=== PATIENT | male | born 1955 | race Caucasian/White ===

== ENCOUNTER 2019-07-10 15:25 | Outpatient (CLI) | payer BC, SELFPAY ==
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
== END 2019-07-10 15:26 | disposition home or self-care (01) ==
LOC: RADWPI 15:32
PROVIDERS: Family Provider Nurse Practitioner; PCP Family Medicine; Visit Provider Family Medicine
DX: M47.894 Other spondylosis, thoracic region (principal); M47.896 Other spondylosis, lumbar region; M54.6 Pain in thoracic spine; M54.2 Cervicalgia; M54.5 Low back pain
CPT/HCPCS: 72040; 72072; 72100

== ENCOUNTER → 2019-07-15 14:40 | Outpatient (BNVA) | payer BC, SELFPAY | PROVIDERS: Family Provider Nurse Practitioner; PCP Family Medicine; Visit Provider Psychiatry & Neurology Psychiatry | DX: F33.2 Major depressive disorder, recurrent severe without psychotic features (principal); F41.1 Generalized anxiety disorder | CPT/HCPCS: 99204 ==

== ENCOUNTER → 2019-07-27 12:32 | Outpatient (BNVA) | payer BC, SELFPAY | PROVIDERS: Family Provider Nurse Practitioner; PCP Family Medicine; Referring Provider Nurse Practitioner; Visit Provider Specialist | DX: I99.8 Other disorder of circulatory system (principal); Z86.73 Personal history of transient ischemic attack (TIA), and cerebral infarction without residual deficits | CPT/HCPCS: 99204 ==

== ENCOUNTER → 2019-08-26 09:05 | Outpatient (BNVA) | payer BC, SELFPAY | PROVIDERS: Family Provider Nurse Practitioner; PCP Nurse Practitioner; Visit Provider Nurse Practitioner | DX: E29.1 Testicular hypofunction (principal); F52.0 Hypoactive sexual desire disorder; R53.82 Chronic fatigue, unspecified | CPT/HCPCS: 80053; 84403; 85025 ==

== ENCOUNTER → 2019-08-27 15:54 | Outpatient (BNVA) | payer BC, SELFPAY | PROVIDERS: Family Provider Nurse Practitioner; PCP Nurse Practitioner; Visit Provider Psychiatry & Neurology Psychiatry | DX: F41.1 Generalized anxiety disorder (principal); F33.2 Major depressive disorder, recurrent severe without psychotic features | CPT/HCPCS: 99213 ==

== ENCOUNTER → 2019-09-10 16:05 | Outpatient (BNVA) | payer BC, SELFPAY | PROVIDERS: Family Provider Nurse Practitioner; PCP Nurse Practitioner; Visit Provider Psychiatry & Neurology Psychiatry | DX: F41.1 Generalized anxiety disorder (principal); F33.2 Major depressive disorder, recurrent severe without psychotic features | CPT/HCPCS: 99213 ==

== ENCOUNTER → 2019-10-07 08:49 | Outpatient (BNVA) | payer BC, SELFPAY | PROVIDERS: Family Provider Nurse Practitioner; PCP Nurse Practitioner; Visit Provider Psychiatry & Neurology Psychiatry | DX: F50.81 Binge eating disorder (principal); F41.1 Generalized anxiety disorder; F33.2 Major depressive disorder, recurrent severe without psychotic features | CPT/HCPCS: 99213 ==

== ENCOUNTER → 2019-11-03 07:51 | Outpatient (BNVA) | payer BC, SELFPAY | PROVIDERS: Family Provider Nurse Practitioner; PCP Nurse Practitioner; Visit Provider Psychiatry & Neurology Psychiatry | DX: F50.81 Binge eating disorder (principal); F41.1 Generalized anxiety disorder; F33.2 Major depressive disorder, recurrent severe without psychotic features; F25.1 Schizoaffective disorder, depressive type | CPT/HCPCS: 99214 ==

== ENCOUNTER → 2020-01-05 08:07 | Outpatient (BNVA) | payer BC, SELFPAY | PROVIDERS: Family Provider Nurse Practitioner; PCP Nurse Practitioner; Visit Provider Psychiatry & Neurology Psychiatry | DX: F50.81 Binge eating disorder (principal); F41.1 Generalized anxiety disorder; F33.2 Major depressive disorder, recurrent severe without psychotic features | CPT/HCPCS: 99214 ==

== ENCOUNTER → 2020-02-16 08:14 | Outpatient (BNVA) | payer BC, SELFPAY | PROVIDERS: Family Provider Nurse Practitioner; PCP Nurse Practitioner; Visit Provider Psychiatry & Neurology Psychiatry | DX: F50.81 Binge eating disorder (principal); F41.1 Generalized anxiety disorder; F33.2 Major depressive disorder, recurrent severe without psychotic features | CPT/HCPCS: 99213 ==

== ENCOUNTER → 2020-05-07 14:22 | Outpatient (BNVA) | payer BC, SELFPAY | PROVIDERS: Family Provider Nurse Practitioner; PCP Nurse Practitioner; Visit Provider Nurse Practitioner Family | DX: Z20.828 Contact with and (suspected) exposure to other viral communicable diseases (principal) | CPT/HCPCS: 87635 ==

== ENCOUNTER → 2020-11-07 14:38 | Outpatient (BNVA) | payer BC, SELFPAY | PROVIDERS: Family Provider Nurse Practitioner; PCP Nurse Practitioner; Visit Provider Nurse Practitioner Psychiatric/Mental Health | DX: F33.2 Major depressive disorder, recurrent severe without psychotic features (principal); F41.1 Generalized anxiety disorder; F50.81 Binge eating disorder | CPT/HCPCS: 99214 ==

== ENCOUNTER 2020-12-15 14:56 | Outpatient (CLI) | payer BC, SELFPAY ==
--- NOTE | 2020-12-15 15:15 | MR_ITS ---
WS: [id number] MRI BRAIN WITHOUT CONTRAST HISTORY: ENCEPHALOPATHY;DEPRESSION;PTSD;ANXIETY DISORDER COMPARISON: None available. TECHNIQUE: Diffusion imaging, multiplanar T1, T2 and FLAIR imaging obtained. Quality of this examination is significantly compromised by body habitus. Only able to perform noncon trast examination due to pain and discomfort. No evidence for acute infarct or hemorrhage. Yoder-white matter differentiation is normal. No remote or acute infarcts are volume loss. Very minimal chronic microvascular ischemic disease. No prior infarct. No significant volume loss. Ventricles and extra-axial spaces are normal. No inferior displacement of cerebellar tonsils. The sella turcica and pituitary gland are unremarkabl e. Dural venous sinuses and [place] demonstrate no abnormality on this unenhanced studies. Paranasal sinuses: Small amount of mucus and debris in the posterior sphenoid sinus. Mastoid air cells: Normal. Calvarium and scalp: Intact. MR/MR head wo con* [id number] IMPRESSION: 1. Study is compromised by patient's body habitus. No contrast study performed due to patient discomfort. 2. Mild chronic microvascular ischemic disease. No acute infarct.
== END 2020-12-15 14:57 | disposition home or self-care (01) ==
LOC: RADSHAW 15:01
PROVIDERS: Family Provider Nurse Practitioner; PCP Nurse Practitioner; Visit Provider Family Medicine
DX: G93.40 Encephalopathy, unspecified (principal); F32.9 Major depressive disorder, single episode, unspecified; F43.10 Post-traumatic stress disorder, unspecified; F41.1 Generalized anxiety disorder; I67.82 Cerebral ischemia
CPT/HCPCS: 70551

== ENCOUNTER → 2021-01-09 15:46 | Outpatient (BNVA) | payer BC, SELFPAY | PROVIDERS: Family Provider Nurse Practitioner; PCP Nurse Practitioner; Visit Provider Nurse Practitioner Family | DX: Z20.822 Contact with and (suspected) exposure to COVID-19 (principal) | CPT/HCPCS: 87635 ==

== ENCOUNTER → 2021-09-25 14:15 | Outpatient (BNVA) | payer MEDICARE, SELFPAY | PROVIDERS: Family Provider Nurse Practitioner; PCP Nurse Practitioner; Visit Provider Nurse Practitioner Psychiatric/Mental Health | DX: F33.2 Major depressive disorder, recurrent severe without psychotic features (principal); F41.1 Generalized anxiety disorder; F50.81 Binge eating disorder; G47.00 Insomnia, unspecified | CPT/HCPCS: 99214 ==

== ENCOUNTER → 2021-11-06 07:27 | Outpatient (BNVA) | payer MEDICARE, SELFPAY | PROVIDERS: Family Provider Nurse Practitioner; PCP Nurse Practitioner; Visit Provider Nurse Practitioner Psychiatric/Mental Health | DX: F32.9 Major depressive disorder, single episode, unspecified (principal); F33.2 Major depressive disorder, recurrent severe without psychotic features; F41.1 Generalized anxiety disorder; F50.81 Binge eating disorder; G47.00 Insomnia, unspecified | CPT/HCPCS: 99214 ==

== ENCOUNTER → 2022-02-06 09:21 | Outpatient (BNVA) | payer MEDICARE, MEDICAID, SELFPAY | PROVIDERS: Family Provider Nurse Practitioner; PCP Nurse Practitioner; Visit Provider Family Medicine | DX: E55.9 Vitamin D deficiency, unspecified (principal); E53.8 Deficiency of other specified B group vitamins; F32.9 Major depressive disorder, single episode, unspecified; G47.00 Insomnia, unspecified; G47.30 Sleep apnea, unspecified; R73.03 Prediabetes; R97.20 Elevated prostate specific antigen [PSA]; E78.1 Pure hyperglyceridemia | CPT/HCPCS: 80053; 80061; 82040; 82306; 82607; 83036; 83721; 84153; 84270; 84403; 85025 ==

== ENCOUNTER → 2022-05-30 09:35 | Outpatient (BNVA) | payer MEDICARE, MEDICAID, SELFPAY | PROVIDERS: Family Provider Nurse Practitioner; PCP Family Medicine; Visit Provider Family Medicine | DX: R79.89 Other specified abnormal findings of blood chemistry (principal); Z00.00 Encounter for general adult medical examination without abnormal findings; E78.1 Pure hyperglyceridemia; E55.9 Vitamin D deficiency, unspecified; E53.8 Deficiency of other specified B group vitamins; F41.1 Generalized anxiety disorder; F50.81 Binge eating disorder; G47.00 Insomnia, unspecified | CPT/HCPCS: 80053; 80061; 82040; 82607; 82652; 83036; 83721; 83735; 84270; 84403; 84443 ==

== ENCOUNTER → 2022-06-26 09:45 | Outpatient (BNVA) | payer MEDICARE, MEDICAID, SELFPAY | PROVIDERS: Family Provider Nurse Practitioner; PCP Family Medicine; Visit Provider Dermatology | DX: D48.9 Neoplasm of uncertain behavior, unspecified (principal); L57.0 Actinic keratosis; L82.0 Inflamed seborrheic keratosis; L21.9 Seborrheic dermatitis, unspecified; L85.1 Acquired keratosis [keratoderma] palmaris et plantaris; L98.9 Disorder of the skin and subcutaneous tissue, unspecified | CPT/HCPCS: 88305 ==

== ENCOUNTER 2022-12-03 08:34 | Outpatient (CLI) | payer MEDICARE, MEDICAID, SELFPAY ==
[2022-12-03 10:22] LABS: Basophils # 0.1 10^3/uL (0.0-0.1); Basophils % 1.1 %; Eosinophils # 0.2 10^3/uL (0.0-0.8); Eosinophils % 2.4 %; Hematocrit 50.2 % (42.0-52.0); Hemoglobin 16.4 g/dL (11.7-16.6); Lymphocytes # 1.4 10^3/uL (0.8-4.8); Lymphocytes % 20.9 %; Mean Corpuscular HGB Conc 32.7 g/dL (30.0-36.0); Mean Corpuscular Hemoglobin 31.6 pg (28.0-34.0); Mean Corpuscular Volume 96.7 fl (80-94); Monocytes # 0.6 10^3/uL (0.2-0.9); Monocytes % 9.2 %; Neutrophils # 4.37 10^3/uL (1.8-7.7); Neutrophils % 65.6 %; Nucleated Red Blood Cells % 0 %; Platelet Count 171 10^3/cmm (130-400); Red Blood Count 5.19 10^6/uL (4.1-5.3); Red Cell Distribution Width 13.3 % (12.1-15.1); White Blood Count 6.7 10^3/uL (4.0-10.0)
[2022-12-03 11:01] LABS: Alanine Aminotransferase 21 U/L (0-41); Albumin Level 4.5 g/dL (3.5-5.2); Alkaline Phosphatase 70 U/L (40-130); Anion Gap 14.3 (5-19); Aspartate Amino Transferase 19 U/L (0-40); Blood Urea Nitrogen 11 mg/dL (8-23); Calcium 8.7 mg/dL (8.5-10.5); Carbon Dioxide 23 mmol/L (22-29); Chloride 102 mmol/L (98-107); Chol HDL Ratio 5.64 mg/dL (1.0-5.00); Cholesterol 203 mg/dL (0-200); Globulin 2.3 g/dL (1.3-4.6); Glomerular Filtration Rate 74.8 mL/min (90-130); Glucose 119 mg/dL (65-115); HDL Cholesterol 36 mg/dL (60-100); LDL Cholesterol Calculated 110 mg/dL (50-129); LDL HDL Ratio 3.06 RATIO (0.00-3.22); Osmolality Calculated 281 mOsm/kg (285-295); Potassium 4.3 mmol/L (3.5-5.1); Prostate Specific Antigen Scr 1.38 ng/mL (0-4); Sodium 135 mmol/L (136-145); Thyroid Stimulating Hormone 2.23 uIU/mL (0.27-4.20); Total Bilirubin 0.5 mg/dL (0.15-1.2); Total Protein 6.8 g/dL (6.6-8.7); Triglycerides 283 mg/dL (0-150); Vitamin B12 397 pg/mL (232-1245)
[2022-12-03 11:53] LABS: Estmated Average Glucose 143; Hemoglobin A1C 6.6 % (4.0-6.0)
[2022-12-04 08:35] LABS: Albumin 4.2 g/dL (3.6-5.1)
[2022-12-04 09:39] LABS: Sex Hormone Binding Globulin 18 nmol/L (22-77); Testosterone Bioavailable 173.7 ng/dL (110.0-575.0); Testosterone Free 90.2 pg/mL (46.0-224.0); Testosterone Total Males IA 421 ng/dL (250-827)
[2022-12-08 15:35] LABS: Vit D 1,25 (Oh)2, Total 50 pg/mL (18-72); Vit D2 1,25 (Oh)2 <8 pg/mL; Vit D3 1,25 (Oh)2 50 pg/mL
== END 2022-12-03 08:35 | disposition home or self-care (01) ==
PROVIDERS: PCP Family Medicine; Visit Provider Family Medicine
DX: E53.8 Deficiency of other specified B group vitamins (principal); E55.9 Vitamin D deficiency, unspecified; E78.1 Pure hyperglyceridemia; F41.1 Generalized anxiety disorder; G45.9 Transient cerebral ischemic attack, unspecified; R79.89 Other specified abnormal findings of blood chemistry
CPT/HCPCS: 36415; 80053; 80061; 82040; 82607; 82652; 83036; 84270; 84403; 84443; 85025; G0103

== ENCOUNTER 2022-12-07 10:56 | Outpatient (CLI) | payer MEDICARE, MEDICAID, SELFPAY ==
--- NOTE | 2022-12-07 11:00 | MR_ITS ---
WS: [id number] MRI LUMBAR SPINE NONCONTRAST TECHNIQUE: Sagittal T1, T2 and STIR imaging. Axial T1 and T2 imaging. CLINICAL INFORMATION: M54.16 - Radiculopathy, lumbar region COMPARISON: None. FINDINGS: Mild lumbar curve. No acute compression. No high-grade central canal stenosis. Mild diffuse narrowing of the thecal sac due to prominent epidural fat. Herniated LEFT pericentral disc material posterior to the L4 vertebral body extending to the L4 interspace. This impinges the LEFT subarticular recess. L1-L2: Mild annular bulging. Moderate facet arthropathy. Spinal canal and foramen are patent. L2-L3: Mild annular bulging. Moderate narrowing of the thecal sac with prominent epidural fat and mod erate facet arthropathy with ligamentum flavum hypertrophy. Mild LEFT foraminal narrowing. L3-L4: Moderate narrowing of the thecal sac due to prominent epidural fat. Tiny LEFT pericentral prot rusion with slight impingement LEFT subarticular recess. Moderate facet arthropathy. LEFT lateral pro trusion with slight impingement on the exiting LEFT L3 nerve root laterally. LEFT eccentric annular f issure. Mild RIGHT foraminal narrowing. L4-L5: Mild disc bulging with a shallow LEFT pericentral protrusion. Moderate to severe narrowing of the thecal sac with prominent epidural fat. Moderate facet arthropathy ligamentum flavum hypertrophy. Impingement subarticular recess LEFT greater than RIGHT. Mild RIGHT greater than LEFT foraminal narr owing. L5-S1: Tapering of the thecal sac. Bony spinal canal is patent. Moderate facet arthropathy. Foramen a re patent. Visualized pelvic bony structures: Normal. Paravertebral soft tissues: Normal. MR/MR lumbar spine wo con* [id number] IMPRESSION: 1. Mild lumbar curve. No acute compression. 2. Prominent epidural fat contributes to thecal sac narrowing throughout the l umbar spine. 3. Moderate narrowing of the thecal sac L2-L3 and L3-L4. Moderate to severe L4 -L5 with impingement on the traversing L5 nerve roots bilaterally 4. Small amount of herniated disc material posterior to the L4 vertebral body with impingement on the LEFT subarticular recess extending to the L4 interspace . 5. Moderate facet arthropathy with ligamentum flavum hypertrophy L2-L4 worse a t L4-L5. 6. Far LEFT lateral protrusion L3-L4 with a small annular fissure slightly imp inges the exiting LEFT L3 nerve root laterally. 7. Mild LEFT L2-L3 and mild bilateral L4-L5 foraminal narrowing. 8.
== END 2022-12-07 10:57 | disposition home or self-care (01) ==
LOC: RAD 11:00
PROVIDERS: PCP Family Medicine; Visit Provider Family Medicine
DX: M54.16 Radiculopathy, lumbar region (principal); M48.061 Spinal stenosis, lumbar region without neurogenic claudication; M51.26 Other intervertebral disc displacement, lumbar region; M47.816 Spondylosis without myelopathy or radiculopathy, lumbar region
CPT/HCPCS: 72148

== ENCOUNTER 2023-01-17 17:37 | Emergency (ER) | payer MEDICARE, MEDICAID, SELFPAY ==
[2023-01-17 17:51] VITALS: BP 134/92; PULSE 89; RESP 16; TEMP 36.7; O2SAT 94
--- NOTE | 2023-01-17 18:42 | XRR_ITS ---
PROCEDURE INFORMATION: Exam: XR Chest Exam date and time: 01/17/2023 6:51 PM Age: 67 years old Clinical indication: Shortness of breath TECHNIQUE: Imaging protocol: Radiologic exam of the chest. Views: 2 views. COMPARISON: CT chest con [id number] 06/10/2019 4:06 PM FINDINGS: Lungs: Unremarkable. No consolidation. Pleural spaces: Unremarkable. No pleural effusion. No pneumothorax. Heart/Mediastinum: Stable heart size. Bones/joints: Stable bones. XR/XR chest 2V* [id number] IMPRESSION: No acute findings.
--- NOTE | 2023-01-17 18:43 | ECG_ITS ---
[facility] Test Date: 2023-01-17 Pat Name: Sajan Pace Department: Room: Gender: Male Vamp Creaser: : 1955 Requested By: Fide Joyner Order Number: [id number] Valdez MD: Jesús Pro M.D. Measurements Intervals [place] Rate: 77 P: 55 UT: 167 QRS: -3 QRSD: 102 T: 17 QT: 360 QTc: 408 Interpretive Statements SINUS RHYTHM No previous ECG available for comparison Electronically Signed On 01-17-2023 23:37:54 CDT by Jesús Pro M.D. [id number]
--- NOTE | 2023-01-17 19:12 | ED_ITS ---
HPI - Weakness General: Chief complaint: Weakness Stated complaint: SOB, Dizzy, Weakness Time Seen by Provider: 01/17/23 19:12 History of Present Illness: Mr. Pace is a 67-year-old gentleman with history of diabetes presenting to the emergency department for evaluation of generalized illness. He was started on a new diabetes injectable approximately 5 weeks ago and over the past number of weeks has had intermittent worsening of shortness of breath, episodic dizziness, generalized weakness, malaise. He notes poor p.o. intake. He also has had episodes of confusion. He does report a history of possible CTE from recurrent basketball related injuries. Overall course of symptoms has worsened. Intensity is moderate. No other specific changes in health, exacerbating, or al leviating factors identified. Onset (ago): week(s) Duration: intermittent and progressively worsening Relieving factors: none Exacerbating factors: none Associated symptoms: Reports confusion, headache(s) and other Review of Systems General: Reports: 10 or more systems reviewed and unremarkable except in HPI and below Neuro: Reports: headache(s) and confusion PFSH ED PFSH: Medical History History of nonmelanoma skin cancer Hypertriglyceridemia Insomnia Sleep apnea Treatment-resistant depression Suspected - sees a therapist weekly Vitamin B12 deficiency Family History Other CAD (coronary artery disease) Diabetes Hypertension Psychiatric illness Stroke Social History Smoking and tobacco status: never smoked Second hand smoke exposure: No Smoking risk assessment/counseling performed?: Yes Tobacco counseling given: counseling >3 minutes Alcohol intake: former Year of sobriety/quit date alcohol: 2014 Substance/Drug Use: former Date of last use: 2012 Physical Exam Const: COMMON NORMALS: alert GENERAL APPEARANCE: cooperative and well developed HENMT: COMMON NORMALS: normocephalic and atraumatic HEAD & SCALP: normocephalic and atraumatic THROAT: posterior oropharynx normal Eye: COMMON NORMALS: conjunctivae normal CONJUNCTIVA: Yes conjunctivae normal SCLERA: sclerae normal Neck/C-Spine: COMMON NORMALS: supple GENERAL: Yes trachea midline Resp: COMMON NORMALS: clear to auscultation bilaterally EFFORT & IN SPECTION: Yes able to speak in complete sentences AUSCULTATION: clear to auscultation bilaterally Cardio: COMMON NORMALS: regular rate and regular rhythm RATE: regular rate RHYTHM: regular rhythm GI: COMMON NORMALS: Soft to palpation PALPATION: Yes Soft to palpation and No Tenderness to palpation present (GI) Extremity: GENERAL: Yes normal exam except as noted and No edema Neuro: COMMON NORMALS: moves all extremities SENSORIUM/ORIENTATION: Yes alert and No Orientation impaired Psych: COMMON NORMALS: mental status grossly normal and Normal thought process present THOUGHT PROCESS: Normal thought process present Course Vital Signs: Vital signs: Vital Signs Temperature 98.1 F 01/17/23 17:51 Pulse Rate 73 01/17/23 22:03 Respiratory Rate 18 01/17/23 22:03 Blood Pressure 147/92 01/17/23 22:03 Pulse Oximetry 93 01/17/23 22:03 Oxygen Delivery Me thod Room Air 01/17/23 21:35 MDM - Weakness Medical Decision Making 67-year-old gentleman presenting the emergency department for generalized weakness with shortness of breath and generalized malaise. Exam as above. Nonfocal. Nontoxic. EKG demonstrates sinus rhythm with normal axis and intervals, no STEMI. Hematologic panel with perhaps mild hemoconcentration, no significant electrolyte derangement. Negative range 2-hour delta troponin. No UTI. CT head negative for acute pathology. Chest x-ray with no lobar consolidation or pneumothorax. Patient treated with medication for blood pressure and IV fluids. Exact etiology is unclear, perhaps related to medications however does not appear to need hospitalization at this time. The results of ED evaluation were discussed with the patient including prescriptions and/or symptomatic cares (if applicable) including appropriate and responsible use, followup plan, and return precautions. The patient verbalized understanding and felt safe for discharge. Medical Records I reviewed the patient's medical records. Lab Data I reviewed the patient's lab results. 01/17/23 19:06 01/17/23 19:06 Radiology Impressions Chest X-Ray 01/17/23 18:42 IMPRESSION: No acute findings. Head CT 01/17/23 19:48 IMPRESSION: No acute intracranial abnormality. Laboratory Results WBC 7.1 10^3/uL (4.0-10.0) 01/17/23 19:06 RBC 5.35 10^6/uL (4.1-5.3) H 01/17/23 19:06 Hgb 16.8 g/dL (11.7-16.6) H 01/17/23 19:06 Hct 51.6 % (42.0-52.0) 01/17/23 19:06 MCV 96.4 fl (80-94) H 01/17/23 19:06 MCH 31.4 pg (28.0-34.0) 01/17/23 19:06 MCHC 32.6 g/dL (30.0-36.0) 01/17/23 19:06 RDW 13.9 % (12.1-15.1) 01/17/23 19:06 Plt Count 181 10^3/cmm (130-400) 01/17/23 19:06 MPV 11.5 fL (7.4-10.4) H 01/17/23 19:06 Neut % (Auto) 58.0 % 01/17/23 19:06 Lymph % (Auto) 27.0 % 01/17/23 19:06 [place] % (Auto) 10.4 % 01/17/23 19:06 Eos % (Auto) 3.5 % 01/17/23 19:06 Baso % (Auto) 1.0 % 01/17/23 19:06 Neut # (Auto) 4.13 10^3/uL (1.8-7.7) 01/17/23 19:06 Lymph # (Auto) 1.9 10^3/uL (0.8-4.8) 01/17/23 19:06 [place] # (Auto) 0.7 10^3/uL (0.2-0.9) 01/17/23 19:06 Eos # (Auto) 0.3 10^3/uL (0.0-0.8) 01/17/23 19:06 Baso # (Auto) 0.1 10^3/uL (0.0-0.1) 01/17/23 19:06 Nucleated RBC % (auto) 0 % 01/17/23 19:06 Nucleated RBCs # 0.0 /100WBC 01/17/23 19:06 Sodium 137 mmol/L (136-145) 01/17/23 19:06 Potassium 4.8 mmol/L (3.5-5.1) 01/17/23 19:06 Chloride 102 mmol/L (98-107) 01/17/23 19:06 Carbon Dioxide 24 mmol/L (22-29) 01/17/23 19:06 Anion Gap 15.8 (5-19) 01/17/23 19:06 BUN 13 mg/dL (8-23) 01/17/23 19:06 Creatinine 1.1 mg/dL (0.7-1.2) 01/17/23 19:06 GFR Calculation 67.0 mL/min (90-130) L 01/17/23 19:06 Glucose 95 mg/dL (65-115) 01/17/23 19:06 Calculated Osmolality 284 mOsm/kg (285-295) L 01/17/23 19:06 Calcium 9.6 mg/dL (8.5-10.5) 01/17/23 19:06 Total Bilirubin 0.6 mg/dL (0.15-1.2) 01/17/23 19:06 AST 29 U/L (0-40) 01/17/23 19:06 ALT 39 U/L (0-41) 01/17/23 19:06 Alkaline Phosphatase 70 U/L (40-130) 01/17/23 19:06 Troponin T Baseline 15 ng/L (0-15) 01/17/23 19:06 Troponin T 120 Minute 14.46 ng/L (0-15) 01/17/23 21:10 Delta Troponin T -0.54 ABS# (0-10) L 01/17/23 21:10 C-Reactive Protein 3.5 mg/L (0.0-4.9) 01/17/23 19:06 NT-Pro-B Natriuret Pep 36 pg/mL (0-125) 01/17/23 19:06 Total Protein 6.5 g/dL (6.6-8.7) L 01/17/23 19:06 Albumin 4.4 g/dL (3.5-5.2) 01/17/23 19:06 Globulin 2.1 g/dL (1.3-4.6) 01/17/23 19:06 Procalcitonin 0.08 ng/mL (0-0.5) 01/17/23 19:06 TSH 2.26 uIU/mL (0.27-4.20) 01/17/23 19:06 Urine Color Yellow (Yellow) 01/17/23 20:14 Urine Appearance Clear (CLEAR) 01/17/23 20:14 Urine pH 6 (5-7) 01/17/23 20:14 Ur Specific [place] 1.015 (1.005-1.030) 01/17/23 20:14 Urine Protein Neg (Negative) 01/17/23 20:14 Urine Glucose (UA) Norm (Normal) 01/17/23 20:14 Urine Ketones Negative (Negative) 01/17/23 20:14 Urine Blood Neg (Negative) 01/17/23 20:14 Urine Nitrate Negative (Negative) 01/17/23 20:14 Urine Bilirubin Neg (Negative) 01/17/23 20:14 Urine Urobilinogen Norm mg/dL (Negative) 01/17/23 20:14 Ur Leukocyte Esterase Negative (Negative) 01/17/23 20:14 Discharge Plan Discharge Patient Disposition: Home Clinical Impression: Generalized weakness, Malaise and fatigue, Nonspecific dizziness Condition: Stable Prescriptions: No Action mecobalamin (vitamin B12) 1,000 mcg tablet,chewable 1,000 mcg PO DAILY omega-3 fatty acids 500 mg capsule 500 mg PO DAILY [id number]-ajybnkyj-uvzeqr Tablet 1 tab PO DAILY gabapentin 100 mg capsule PO mupirocin 2 % ointment 1 applic topical BID Qty: 22 1RF triamcinolone acetonide 0.1 % ointment 1 applic topical BID Qty: 80 0RF Rx Instructions: Apply to affected areas twice daily, as needed. Mounjaro 5 mg/0.5 mL pen injector See Rx Instructions .ROUTE .COMPLEX Qty: 2 0RF Dose Instruction: INJECT 0.5 ML UNDER THE SKIN EVERY WEEK Rx Instructions: INJECT 0.5 ML UNDER THE SKIN EVERY WEEK cholecalciferol (vitamin D3) 125 mcg (5,000 unit) capsule 125 mcg PO DAILY Qty: 30 5RF valacyclovir 1 gram tablet 1,000 mg PO BID 5 Days Qty: 10 3RF omeprazole 20 mg capsule,delayed release(DR/EC) 20 mg PO QDAY Qty: 90 3RF testosterone cypionate 200 mg/mL oil 200 mg SUBCUT Q14D Qty: 10 5RF lorazepam [Ativan] 1 mg tablet 1 mg PO QID PRN (Reason: anxiety) Qty: 120 5RF diclofenac potassium 50 mg tablet 50 mg PO BID 10 Days Qty: 60 5RF Discharge Orders: Discharge ED (Routine); Ordered 01/17/23 Ordered By: Adrian Mendez Referrals: Piedad Holland DO [Primary Care Provider] - Discharge Diet: Usual diet Discharge Activity: Increase activity as tolerated Patient Instructions: Dizziness (ED), Weakness (Generalized) Activity Restrictions/Additional Instructions: Thank you for visiting the emergency department. You were seen and evaluated for generalized illness. The exact cause of your symptoms is unclear. As discussed may be related to medication change however I recommend follow-up with your primary care provider. Please ensure that you are resting and staying hydrated. Return for any new neurologic symptoms, uncontrolled symptoms, or anything else that you are concerned about and feel needs emergency department evaluation. Coding Level of Care Code ED [employer] for Tommy Cardoza
[2023-01-17 19:19] LABS: Basophils # 0.1 10^3/uL (0.0-0.1); Eosinophils # 0.3 10^3/uL (0.0-0.8); Eosinophils % 3.5 %; Hematocrit 51.6 % (42.0-52.0); Hemoglobin 16.8 g/dL (11.7-16.6); Lymphocytes # 1.9 10^3/uL (0.8-4.8); Mean Corpuscular HGB Conc 32.6 g/dL (30.0-36.0); Mean Corpuscular Hemoglobin 31.4 pg (28.0-34.0); Mean Corpuscular Volume 96.4 fl (80-94); Mean Platelet Volume 11.5 fL (7.4-10.4); Monocytes # 0.7 10^3/uL (0.2-0.9); Monocytes % 10.4 %; Neutrophils # 4.13 10^3/uL (1.8-7.7); Nucleated Red Blood Cells % 0 %; Platelet Count 181 10^3/cmm (130-400); Red Blood Count 5.35 10^6/uL (4.1-5.3); Red Cell Distribution Width 13.9 % (12.1-15.1); White Blood Count 7.1 10^3/uL (4.0-10.0)
[2023-01-17 19:24] VITALS: BP 171/96; PULSE 82; RESP 20; O2SAT 94; O2SAT 95
[2023-01-17 19:39] LABS: Troponin(5th) Baseline 15 ng/L (0-15)
--- NOTE | 2023-01-17 19:48 | CTR_ITS ---
PROCEDURE INFORMATION: Exam: CT Head Without Contrast Exam date and time: 01/17/2023 8:26 PM Age: 67 years old Clinical indication: Dizziness; Additional info: Dizziness, episodic confusion TECHNIQUE: Imaging protocol: Computed tomography of the head without contrast. Radiation optimization: All CT scans at this facility use at least one of these dose optimization techniques: automated exposure control; mA and/or kV adjustment per patient size (includes targeted exams where dose is matched to clinical indication); or iterative reconstruction. REPORTING DATA: Count of CT and Cardiac NM exams in prior 12 months: This patient has received 0 known CTs and 0 known cardiac nuclear medicine studies in the 12 months prior to the current study. COMPARISON: MR head wo con* [id number] 12/15/2020 3:17 PM RADIATION DOSE METRICS: Total DLP (mGy-cm): 1315.45 FINDINGS: Brain: No acute infarct. No hemorrhage. Unremarkable white matter for age. No mass effect. Cerebral ventricles: No ventriculomegaly. Paranasal sinuses: Scattered paranasal sinus mucosal thickening, without air-fluid level present. Mastoid air cells: Visualized mastoid air cells are well aerated. Bones/joints: Unremarkable. No acute fracture. Soft tissues: Unremarkable. CT/CT head wo con* [id number] IMPRESSION: No acute intracranial abnormality.
[2023-01-17 20:00] LABS: Alanine Aminotransferase 39 U/L (0-41); Albumin Level 4.4 g/dL (3.5-5.2); Alkaline Phosphatase 70 U/L (40-130); Anion Gap 15.8 (5-19); Aspartate Amino Transferase 29 U/L (0-40); Blood Urea Nitrogen 13 mg/dL (8-23); Calcium 9.6 mg/dL (8.5-10.5); Carbon Dioxide 24 mmol/L (22-29); Chloride 102 mmol/L (98-107); Globulin 2.1 g/dL (1.3-4.6); Glucose 95 mg/dL (65-115); Osmolality Calculated 284 mOsm/kg (285-295); Potassium 4.8 mmol/L (3.5-5.1); Sodium 137 mmol/L (136-145); Total Bilirubin 0.6 mg/dL (0.15-1.2); Total Protein 6.5 g/dL (6.6-8.7)
[2023-01-17 20:12] LABS: NT Pro B Type Natriuretic Pept 36 pg/mL (0-125); Procalcitonin 0.08 ng/mL (0-0.5); Thyroid Stimulating Hormone 2.26 uIU/mL (0.27-4.20)
[2023-01-17 20:23] VITALS: BP 157/95; PULSE 76; RESP 20; O2SAT 93
[2023-01-17 20:23] LABS: C Reactive Protein 3.5 mg/L (0.0-4.9)
[2023-01-17 20:27] LABS: Add Urine Microscopic? NO; Charge for UA Resulting for Rev
[2023-01-17 20:29] LABS: Bilirubin Urine Neg (Negative); Blood Urine Neg (Negative); Glucose Urine UA Norm (Normal); Ketones Urine Negative (Negative); Leukocyte Esterase Urine Negative (Negative); Nitrate Urine Negative (Negative); Protein Urine Neg (Negative); Specific Gravity, Urine 1.015 (1.005-1.030); Urine Appearance Clear (CLEAR); Urine Color Yellow (Yellow); Urobilinogen Urine Norm (Negative); pH Urine 6 (5-7)
[2023-01-17] MEDS: sodium chloride 0.9% 1,000 ML 999 ML IV (20:29)
--- NOTE | 2023-01-17 20:51 | ECG_ITS ---
[facility] Test Date: 2023-01-17 Pat Name: Sajan Pace Department: Room: Gender: Male Inspector Finishing: : 1955 Requested By: Fide Joyner Order Number: [id number] José Miguel MD: Jesús Pro M.D. Measurements Intervals [place] Rate: 75 P: 24 NM: 165 QRS: 3 QRSD: 105 T: 19 QT: 388 QTc: 434 Interpretive Statements SINUS RHYTHM Compared to ECG 01/17/2023 19:20:56 No significant changes Electronically Signed On 01-17-2023 23:39:45 CDT by Jesús Pro M.D. [id number]
[2023-01-17 21:02] VITALS: BP 198/121; BP 199/126; BP 200/116; PULSE 74; PULSE 77; PULSE 84
[2023-01-17 21:35] VITALS: BP 147/92; PULSE 76; RESP 24; O2SAT 91
[2023-01-17 22:03] VITALS: BP 147/92; PULSE 73; RESP 18; O2SAT 93
[2023-01-17 22:15] LABS: Troponin 5 2HR 14.46 ng/L (0-15)
[2023-01-17 22:17] LABS: Troponin 5 2HR Delta -0.54 ABS# (0-10)
== END 2023-01-17 22:00 | disposition home or self-care (01) ==
PROVIDERS: Nurse Practitioner Family; Emergency Provider Emergency Medicine; PCP Family Medicine
DX: R53.1 Weakness (principal); R42 Dizziness and giddiness; R53.81 Other malaise; R53.83 Other fatigue
CPT/HCPCS: 36415; 70450; 71046; 80053; 81003; 83880; 84145; 84443; 84484; 85025; 86140; 93005; 96360; 96361; 99285; J7030

== ENCOUNTER 2023-02-11 13:52 | Outpatient (CLI) | payer MEDICARE, MEDICAID, SELFPAY ==
--- NOTE | 2023-02-11 14:15 | CTR_ITS ---
PROCEDURE INFORMATION: Exam: CT Chest With Contrast; Diagnostic Exam date and time: 02/11/2023 2:10 PM Age: 67 years old Clinical indication: Abnormal findings; Abnormal radiologic exam of lung or chest; Patient HX: Follow up on lung nodule, PT states no complains TECHNIQUE: Imaging protocol: Diagnostic computed tomography of the chest with contrast. Radiation optimization: All CT scans at this facility use at least one of these dose optimization techniques: automated exposure control; mA and/or kV adjustment per patient size (includes targeted exams where dose is matched to clinical indication); or iterative reconstruction. Contrast material: OMNI 350; Contrast volume: 95 ml; Contrast route: INTRAVENOUS (IV); REPORTING DATA: Count of CT and Cardiac NM exams in prior 12 months: This patient has received [address] and 0 known cardiac nuclear medicine studies in the 12 months prior to the current study. COMPARISON: CT chest wo con [id number] 06/10/2019 4:06 PM RADIATION DOSE METRICS: Total DLP (mGy-cm): 1252.26 FINDINGS: Lungs: There is a sessile shaped perifissural pulmonary nodule right middle lobe abutting the minor fissure measuring approximately 10 x 5 mm, stable, benign. There are 3 small circumscribed pulmonary nodules left lingula left lower lobe measuring up to 5 mm, stable consistent with benign etiology. There are no new or suspicious pulmonary nodules detected. Lung avalos are aerated and clear. Pleural spaces: Unremarkable. No pneumothorax. No pleural effusion. Heart: Heart is not significantly enlarged. No significant coronary artery calcifications. No significant pericardial effusion. Lymph nodes: Unremarkable. No enlarged lymph nodes. Vasculature: Unremarkable. No aortic aneurysm. Bones/joints: Unremarkable. No acute fracture. Soft tissues: Unremarkable. CT/CT chest w con* [id number] IMPRESSION: Stable pulmonary nodules both lung avalos consistent with benign etiology. No new nodules detected.
[2023-02-11] MEDS: iohexol 350 mg/mL 500 mL Btl (per mL) IV (14:21)
== END 2023-02-11 13:53 | disposition home or self-care (01) ==
PROVIDERS: PCP Family Medicine; Visit Provider Family Medicine
DX: R91.8 Other nonspecific abnormal finding of lung field (principal)
CPT/HCPCS: 71260; Q9967

== ENCOUNTER 2023-02-12 09:56 | Outpatient (CLI) | payer MEDICARE, MEDICAID, SELFPAY ==
--- NOTE | 2023-02-12 13:11 | OP.DCCON ---
Reason for Visit: Type 2 diabetes mellitus without complication Person Interviewed: Patient Medical History, Labs and Background: Sajan mentioned his DM2 diagnosis, but spent 20-30 minutes discussing his issues with CTE as well as his recent bankruptcy and battles with depression and binge eating he now associates with possibility of CTE. 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 In 2013 he had a bad seizure and was hospitalized. After that he struggled with binge eating and his weight has been climbing ever since. Concerns and Goals: He would like to weigh 270 lbs. We set a more modest goal of 10% wt loss by Meryl, so between 370-380. Sleep Hygiene: Sleeping is hard, but he is aiming to be in bed by midnight and up by 8:00. Physical Activity: His goal is to go to [employer] and walk dogs, daily. GI Symptoms: Constipation Other Feeding Issues: He takes Mounjaro and finds that it causes constipation, as well as lethargy and nausea at times. Food Allergies and Sensitivities: No food allergies or sensitivities that he knew of. Meds, Supplements & Other: He mentioned Lorazepam, MV, fish oil, Vit B complex, Vit D3, Magnesium citrate 24 Hour Recall: Breakfast Time: Snack Time: Lunch Time: Snack Time: Dinner Time: Snack Time: Eating Out: He couldn't give a 24 hour call and he said he deplores cooking - the stress and the mess causes anxiety - and anxiety and depression are issues. Though he lives near his sister, he doesn't like to have too much contact with her, so she isn't an option with food preparation. Soda vs Milk vs Water: Evian water - 4-6 16 ounce bottles/day, no coffee, an occasional soda. Additional Comments: Sajan wants to change things, but doesn't have people to help him plan and cook meals and doesn't want to ask the one person closest in proximity and family to help him. Since he recently filed bankruptcy he is on a strict budget. We talked about protein shakes and eating more regularly as he only mentioned eating twice a day. Recommendations: Assessment: Sajan wants to change and like being educated about options. We discussed what would be reasonable weight loss and the best way to go about that. He is inviting more people back into his life which will help him manage his life. Nutrition Dx: Excessive energy intake r/t habits and patterns AEB BMI of 46.5 kg/m2. Intervention: When Miah left, I researched nutrition and CTE because he presented wanting information regarding that. I sent articles and a website started by a and because the is dealing with CTE. Their nutrition recommendations steered towards the Mediterranean Diet which is a wonderful meal plan for DM2 and HTN and also CTE. It promotes healthy fats, lean proteins, lots of fruits and vegetables and encourages exercise. Monitoring and Evaluation: Follow up will happen initially through email as I sent articles and recommendations to Sajan. He seems to want support, so we will continue and possibly have a FU appt. Coding Level of Care Code Nutrition/Individ/Init 60 min
== END 2023-02-12 09:57 | disposition home or self-care (01) ==
LOC: DIET 09:58
PROVIDERS: PCP Family Medicine; Visit Provider Family Medicine
DX: E11.9 Type 2 diabetes mellitus without complications (principal); Z71.3 Dietary counseling and surveillance
CPT/HCPCS: 97802

== ENCOUNTER → 2023-02-22 09:33 | Outpatient (BNVA) | payer MEDICARE, MEDICAID, SELFPAY | PROVIDERS: PCP Family Medicine; Visit Provider Family Medicine | DX: Z00.00 Encounter for general adult medical examination without abnormal findings (principal); Z76.89 Persons encountering health services in other specified circumstances; E11.9 Type 2 diabetes mellitus without complications; R79.89 Other specified abnormal findings of blood chemistry; E78.1 Pure hyperglyceridemia; E55.9 Vitamin D deficiency, unspecified; E53.8 Deficiency of other specified B group vitamins | CPT/HCPCS: 84403; 85025 ==

== ENCOUNTER → 2023-06-12 15:23 | Outpatient (BNVA) | payer MEDICARE, MEDICAID, SELFPAY | PROVIDERS: PCP Family Medicine; Visit Provider Family Medicine | DX: E78.1 Pure hyperglyceridemia (principal); E11.9 Type 2 diabetes mellitus without complications; Z13.6 Encounter for screening for cardiovascular disorders; Z12.5 Encounter for screening for malignant neoplasm of prostate | CPT/HCPCS: 80053; 80061; 83036; G0103 ==

== ENCOUNTER → 2023-09-06 09:46 | Outpatient (BNVA) | payer SELFPAY | PROVIDERS: PCP Family Medicine; Visit Provider Family Medicine | DX: R79.89 Other specified abnormal findings of blood chemistry (principal) | CPT/HCPCS: 84403 ==

== ENCOUNTER → 2023-10-18 09:39 | Outpatient (BNVA) | payer MEDICARE, MEDICAID, SELFPAY | PROVIDERS: PCP Family Medicine; Visit Provider Family Medicine | DX: E11.9 Type 2 diabetes mellitus without complications (principal) | CPT/HCPCS: 80053; 83036 ==

== ENCOUNTER → 2024-02-28 19:42 | Outpatient (BNVA) | payer MEDICARE, MEDICAID, SELFPAY | PROVIDERS: PCP Family Medicine; Visit Provider Family Medicine | DX: R09.81 Nasal congestion (principal) | CPT/HCPCS: 87426 ==

== ENCOUNTER → 2024-04-10 09:07 | Outpatient (BNVA) | payer MEDICARE, MEDICAID, SELFPAY | PROVIDERS: PCP Family Medicine; Visit Provider Family Medicine | DX: E78.1 Pure hyperglyceridemia (principal); E78.5 Hyperlipidemia, unspecified; E11.9 Type 2 diabetes mellitus without complications; R79.89 Other specified abnormal findings of blood chemistry; E53.8 Deficiency of other specified B group vitamins; E55.9 Vitamin D deficiency, unspecified; R53.83 Other fatigue; K21.9 Gastro-esophageal reflux disease without esophagitis; F41.1 Generalized anxiety disorder; F32.9 Major depressive disorder, single episode, unspecified | CPT/HCPCS: 80053; 80061; 82040; 82533; 82607; 82652; 83036; 84270; 84403; 84597 ==

== ENCOUNTER → 2024-04-17 17:34 | Outpatient (BNVA) | payer MEDICARE, MEDICAID, SELFPAY | PROVIDERS: PCP Family Medicine; Visit Provider Family Medicine | DX: E55.9 Vitamin D deficiency, unspecified (principal); F41.1 Generalized anxiety disorder; F32.9 Major depressive disorder, single episode, unspecified; E78.1 Pure hyperglyceridemia; E78.5 Hyperlipidemia, unspecified; E11.9 Type 2 diabetes mellitus without complications; R79.89 Other specified abnormal findings of blood chemistry; E53.8 Deficiency of other specified B group vitamins | CPT/HCPCS: 85025; G0103 ==

== ENCOUNTER → 2024-05-11 10:17 | Outpatient (BNVA) | payer MEDICARE, MEDICAID, SELFPAY | PROVIDERS: PCP Family Medicine; Visit Provider Podiatrist Foot & Ankle Surgery | DX: M79.671 Pain in right foot (principal); M79.672 Pain in left foot; E11.42 Type 2 diabetes mellitus with diabetic polyneuropathy | CPT/HCPCS: 73630; 99213 ==

== ENCOUNTER → 2024-06-16 14:09 | Outpatient (BNVA) | payer MEDICARE, MEDICAID, SELFPAY | PROVIDERS: PCP Family Medicine; Visit Provider Family Medicine | DX: E11.9 Type 2 diabetes mellitus without complications (principal) | CPT/HCPCS: 82043 ==

== ENCOUNTER → 2024-09-25 08:58 | Outpatient (BNVA) | payer MEDICARE, OTHER, SELFPAY | PROVIDERS: PCP Family Medicine; Visit Provider Family Medicine | DX: R79.89 Other specified abnormal findings of blood chemistry (principal); E11.9 Type 2 diabetes mellitus without complications; F41.1 Generalized anxiety disorder; F34.1 Dysthymic disorder; E66.9 Obesity, unspecified | CPT/HCPCS: 80053; 83036; 84403; 85025 ==

== ENCOUNTER 2024-12-08 19:56 | Emergency (ER) | payer MEDICARE, MEDICAID, SELFPAY ==
--- NOTE | 2024-12-08 19:58 | XRR_ITS ---
PROCEDURE INFORMATION: Exam: XR Left Foot Exam date and time: 12/08/2024 8:04 PM Age: 69 years old Clinical indication: Pain; Left; [place] lt foot pop; Additional info: Injury TECHNIQUE: Imaging protocol: Radiologic exam of the left foot. Views: 3 or more views. COMPARISON: [place] [id number] ORTH 05/11/2024 10:12 AM FINDINGS: Bones/joints: Dorsal talonavicular osteophyte formation consistent with primary osteoarthritis. Soft tissues: Normal. XR/XR foot LT min 3V* [id number] IMPRESSION: No acute findings.
[2024-12-08 20:16] VITALS: PULSE 88; RESP 16; TEMP 36.8; O2SAT 97
--- NOTE | 2024-12-08 22:57 | W.ED.EXTPRO ---
HPI - Extremity Problem General: Chief complaint: Extremity Injury, Lower Stated complaint: Left Foot Injury Time Seen by Provider: 12/08/24 22:49 Source: patient Mode of arrival: ambulatory Limitations: no limitations History of Present Illness: 69yo male presents with left foot injury that occurred while he was weed eating today. States that he was wearing his muck boots when he stepped back and felt a snap in his left foot. States that he is able to bear weight, but he does have increased discomfort. Patient states that it felt different than his previous sprains and strains. Patient denies any other injury or concern at this time. Associated symptoms: Deny chest pain or fever(s) Related Data Home Medications ?Medication ?Instructions ?Recorded ?Confirmed mecobalamin (vitamin B12) 1,000 1,000 mcg PO DAILY 06/26/21 11/30/24 mcg chewable tablet eyjxrecrzuzz-pplljqws-tsouew tablet 1 tab PO DAILY 06/26/21 11/30/24 Previous Rx's ?Medication ?Instructions ?Recorded cholecalciferol (vitamin D3) 125 125 mcg PO DAILY #30 caps 01/11/23 mcg (5,000 unit) capsule ibuprofen 800 mg tablet See Rx Instructions .Route 11/12/23 .COMPLEX #90 tabs mupirocin 2 % topical ointment 1 applic topical BID #22 grams 11/12/23 valacyclovir 1 gram tablet 1,000 mg PO BID 5 days #10 tabs 11/12/23 omeprazole 40 mg capsule,delayed 40 mg PO QDAY #90 caps 04/09/24 release auto cpap, heated humidifier, cpap #1 ea 05/12/24 supplies tirzepatide 12.5 mg/0.5 mL 12.5 mg (0.5 mL) SUBCUT .weekly #2 07/27/24 subcutaneous pen injector mL tadalafil 20 mg tablet (Cialis) 20 mg PO DAILY PRN sexual activity 08/10/24 #30 tabs gabapentin 100 mg capsule 100 mg PO .qpm PRN restless leg 09/09/24 #90 caps lorazepam 1 mg tablet (Ativan) 1 mg PO BID PRN anxiety #60 tabs 09/24/24 testosterone cypionate 200 mg/mL 150 mg (0.75 mL) SUBCUT Q14D #2 mL 09/27/24 intramuscular oil Allergies Allergy/AdvReac Type Severity Reaction Status Date / Time quetiapine (From Seroquel) Allergy Severe Unknown Verified 11/30/24 14:02 Penicillins AdvReac Intermediate Rash & Verified 11/30/24 14:02 swelling of throat &/or tongue. bupropion (From Wellbutrin) AdvReac Unknown ADR-Agitate Verified 11/30/24 14:02 d topiramate (From Topamax) AdvReac rash Verified 11/30/24 14:02 Review of Systems Const: Denies: fever(s), chills or body aches Card: Denies: chest pain Resp: Denies: dyspnea Musc: Reports: extremity pain (left foot) PFSH ED PFSH: Medical History Primary insomnia Generalized anxiety disorder Binge eating disorder Persistent depressive disorder with anxious distress, currently severe Psychiatric care Spasm of lumbar paraspinous muscle Obstructive sleep apnea Obesity (BMI 30-39.9) DM w/o complication type II Low testosterone testosterone injections Restless leg syndrome CTE (chronic traumatic encephalopathy) History of nonmelanoma skin cancer Hypertriglyceridemia Vitamin B12 deficiency Sleep apnea Insomnia Surgical History Hx of right inguinal hernia repair Family History Mother Diabetes mellitus, type 2 Stroke Heart disease Other CAD (coronary artery disease) Diabetes Hypertension Psychiatric illness Social History Smoking and tobacco/nicotine status: never used tobacco/nicotine Second hand smoke exposure: No Alcohol intake: former Former alcohol use details: only drank beer on occasion in past; Substance/Drug Use: former Date of last use: 2012 Former substance use details: cocaine; no meth; no needles Marital status: Single Number of children: 0 Highest education level completed: Associate Degree: Academic Program Current occupational status: retired 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 He is interactive with exam appropriately. He is in no acute distress. No family at bedside HENMT: COMMON NORMALS: normocephalic and atraumatic HEAD & SCALP: normocephalic and atraumatic Extremity: LEFT LOWER EXTREMITY: Yes foot & digits Left foot and digits: Yes palpation (ttp lateral/inferior aspect proximal 5th metatarsal) Neuro: COMMON NORMALS: patient oriented x3 SENSORIUM/ORIENTATION: Yes alert Course Vital Signs: Vital signs: Vital Signs Temperature 98.2 F 12/08/24 20:16 Pulse Rate 82 12/08/24 23:10 Respiratory Rate 16 12/08/24 23:10 Blood Pressure 135/85 12/08/24 23:10 Pulse Oximetry 98 12/08/24 23:10 Oxygen Delivery Me thod Room Air 12/08/24 20:16 MDM - Extremity (Nontraumatic) Medical Decision Making 69yo male presents with left foot injury that occurred while he was using a weedeater today. States that he was wearing his muck boots when he stepped back and felt a snap in his left foot. States that he is able to bear weight, but he does have increased discomfort. Patient states that it felt different than his previous sprains and strains. Patient denies any other injury or concern at this time. X-rays obtained while awaiting replacements. No fracture or acute bony abnormality noted. Discussed these findings with patient. Patient does have point tenderness to the area. Encourage patient rest, ice, elevation and continue to monitor symptoms. Recommend he follow-up with primary care in about a week for recheck, sooner if needed. Return precautions provided. Patient states understanding and has no further questions or concerns at this time. Medical Records I reviewed the patient's medical records. Lab Data Radiology Impressions Foot X-Ray 12/08/24 19:58 IMPRESSION: No acute findings. All radiology interpretation(s) finalized by discharge Discharge Plan Discharge Patient Disposition: Home Clinical Impression: Left foot pain Condition: Stable Prescriptions: No Action mecobalamin (vitamin B12) 1,000 mcg tablet,chewable 1,000 mcg PO DAILY ocpzqkgeciya-lztdjelw-snkvvg Tablet 1 tab PO DAILY cholecalciferol (vitamin D3) 125 mcg (5,000 unit) capsule 125 mcg PO DAILY Qty: 30 5RF (DME) auto cpap, heated humidifier, cpap supplies See Rx Instructions .Route .MEDSUPPLY Qty: 1 0RF Rx Instructions: 10-16cm of H2O lorazepam [Ativan] 1 mg tablet 1 mg PO BID PRN (Reason: anxiety) Qty: 60 3RF Rx Instructions: May take one tablet twice per day as needed for anxiety valacyclovir 1 gram tablet 1,000 mg PO BID 5 Days Qty: 10 3RF mupirocin 2 % ointment 1 applic topical BID Qty: 22 5RF ibuprofen 800 mg tablet See Rx Instructions .ROUTE .COMPLEX Qty: 90 3RF Dose Instruction: TAKE 1 TABLET BY MOUTH DAILY NEEDED FOR PAIN Rx Instructions: TAKE 1 TABLET BY MOUTH DAILY NEEDED FOR PAIN tadalafil [Cialis] 20 mg tablet 20 mg PO DAILY PRN (Reason: sexual activity) Qty: 30 0RF Rx Instructions: administer approximately 30min before sexual activity; do not use more than 1 dose per 24hrs omeprazole 40 mg capsule,delayed release(DR/EC) 40 mg PO QDAY Qty: 90 3RF tirzepatide 12.5 mg/0.5 mL pen injector 12.5 mg SUBCUT .weekly Qty: 2 5RF gabapentin 100 mg capsule 100 mg PO .qpm PRN (Reason: restless leg) Qty: 90 3RF testosterone cypionate 200 mg/mL oil 150 mg SUBCUT Q14D Qty: 2 2RF Discharge Orders: Discharge ED (Routine); Ordered 12/08/24 Ordered By: Dane Almazan Referrals: Piedad Holland DO [Primary Care Provider, Family Practice] Discharge Diet: Usual diet Discharge Activity: Increase activity as tolerated Patient Instructions: Pain Management Activity Restrictions/Additional Instructions: No fracture or acute bony abnormality noted on the x-ray. Rest, ice, and elevate the foot to help with pain and discomfort Activity as tolerated Follow-up with primary care as needed for recheck Return to the emergency department if any further injury, rapid worsening symptoms, and as needed Print Language: Macedonian Coding Level of Care Code ED Audio Video Technician for Tommy Cardoza
[2024-12-08 23:10] VITALS: BP 135/85; PULSE 82; RESP 16; O2SAT 98
== END 2024-12-08 23:10 | disposition home or self-care (01) ==
PROVIDERS: Emergency Provider Nurse Practitioner; PCP Family Medicine
DX: M79.672 Pain in left foot (principal); E11.9 Type 2 diabetes mellitus without complications
CPT/HCPCS: 73630; 99283

== ENCOUNTER → 2024-12-18 09:04 | Outpatient (BNVA) | payer MEDICARE, MEDICAID, SELFPAY | PROVIDERS: PCP Family Medicine; Visit Provider Family Medicine | DX: Z13.6 Encounter for screening for cardiovascular disorders (principal); R79.89 Other specified abnormal findings of blood chemistry | CPT/HCPCS: 84403; 85025 ==

== ENCOUNTER → 2024-12-21 08:59 | Outpatient (BNVA) | payer MEDICARE, MEDICAID, SELFPAY | PROVIDERS: PCP Family Medicine; Visit Provider Podiatrist Foot & Ankle Surgery | DX: M79.672 Pain in left foot (principal); E11.42 Type 2 diabetes mellitus with diabetic polyneuropathy; M62.9 Disorder of muscle, unspecified | CPT/HCPCS: 99214 ==

== ENCOUNTER → 2025-02-01 09:10 | Outpatient (BNVA) | payer MEDICARE, MEDICAID, SELFPAY | PROVIDERS: PCP Family Medicine; Visit Provider Podiatrist Foot & Ankle Surgery | DX: E11.42 Type 2 diabetes mellitus with diabetic polyneuropathy (principal); M62.9 Disorder of muscle, unspecified; M77.52 Other enthesopathy of left foot and ankle | CPT/HCPCS: 99213 ==

== ENCOUNTER → 2025-03-12 09:21 | Outpatient (BNVA) | payer MEDICARE, MEDICAID, SELFPAY | PROVIDERS: PCP Family Medicine; Visit Provider Family Medicine | DX: E55.9 Vitamin D deficiency, unspecified (principal); R53.83 Other fatigue; R79.89 Other specified abnormal findings of blood chemistry; R35.1 Nocturia; Z12.5 Encounter for screening for malignant neoplasm of prostate; E78.5 Hyperlipidemia, unspecified; E11.9 Type 2 diabetes mellitus without complications | CPT/HCPCS: 80053; 80061; 82306; 82607; 83036; 84153; 84403; 85025 ==

== ENCOUNTER 2025-04-07 16:15 | Outpatient (CLI) | payer MEDICARE, MEDICAID, SELFPAY | END 2025-04-07 16:16 | disposition home or self-care (01) | LOC: SPT 16:15 | PROVIDERS: PCP Family Medicine; Visit Provider Podiatrist Foot & Ankle Surgery | DX: Z46.89 Encounter for fitting and adjustment of other specified devices (principal); E11.42 Type 2 diabetes mellitus with diabetic polyneuropathy; M77.50 Other enthesopathy of unspecified foot and ankle; M62.9 Disorder of muscle, unspecified | CPT/HCPCS: L3030 ==

== ENCOUNTER → 2025-05-04 14:26 | Outpatient (BNVA) | payer MEDICARE, MEDICAID, SELFPAY | PROVIDERS: PCP Family Medicine; Visit Provider Podiatrist Foot & Ankle Surgery | DX: E11.42 Type 2 diabetes mellitus with diabetic polyneuropathy (principal); Q82.8 Other specified congenital malformations of skin | CPT/HCPCS: 99213 ==

== ENCOUNTER → 2025-06-01 14:03 | Outpatient (BNVA) | payer MEDICARE, MEDICAID, SELFPAY | PROVIDERS: PCP Family Medicine; Visit Provider Podiatrist Foot & Ankle Surgery | DX: E11.42 Type 2 diabetes mellitus with diabetic polyneuropathy (principal); Q82.8 Other specified congenital malformations of skin | CPT/HCPCS: 17110 ==

== ENCOUNTER → 2025-06-10 08:50 | Outpatient (BNVA) | payer MEDICARE, MEDICAID, SELFPAY | PROVIDERS: PCP Family Medicine; Visit Provider Family Medicine | DX: Z13.6 Encounter for screening for cardiovascular disorders (principal); R79.89 Other specified abnormal findings of blood chemistry | CPT/HCPCS: 84403; 85025 ==